=== PATIENT | male | born 1980 | race Caucasian/White ===

== ENCOUNTER 2021-03-21 08:37 | Emergency (ER) | payer MEDICAID, OTHER ==
[~2021-03-21] VITALS: Ht 175.3 cm; Wt 61.0 kg
[2021-03-21] MEDS ORDERED: morphine INJ 10 MG/ML 1ML (SYR OR VIAL) IM STA (09:07)
--- NOTE | 2021-03-21 09:14 | ED Upper Extremity ---
General Chief Complaint: Upper Extremity Stated Complaint: RT ARM NUMBNESS/SWELLING; RT SHOULDER PAIN Nursing Triage Note: PT AMBULATE TO ROOM [facility] WITH C/O RIGHT SHOULDER PAIN AND SWELLING. PT REPORTS WAKING UP TODAY AT 0230 WITH PAIN. PT REPORTS HEAVY LIFTING ON SATURDAY. Source: patient History of Present Illness Date Seen by Provider: Mar 21, 2021 Time Seen by Provider: 08:41 Initial Comments 41-year-old male presenting with complaints of acute pain onset at 230 this morning. He states that he has pain into the right shoulder that is worse with movement as well as numbness and tingling down his arm. He has had some similar symptoms in the past but has never been this severe. Usually after drinking too much and then sleeping on it wrong he would have the symptoms for a day but then they would go away. However they have never been this severe. He denies any direct trauma or fall to his shoulder or arm but did do a lot of lifting on Saturday. However Saturday and Saturday during the day were fine. He denies any fever or chills. He denies any other past medical problems that are chronic. He denies any allergies to medications or any chronic medications he takes every day. He does take vitamins and an acid transportation inspector that is over the counter. he reports moving to the area about 2 months ago and has not established with a provider Onset: this morning (about 230 am) Severity: severe Pain/Injury Location: right shoulder Method of Injury: unknown Modifying Factors: Improves With Immobilization; Worse With Movement Allergies and Home Medications Allergies Coded Allergies: No Known Allergies (Verified Allergy, Unknown, 03/21/21) Patient Home Medication List Home Medication List Reviewed: Yes Baclofen (Baclofen) 10 Mg Tablet, 10 MG PO TID PRN for MUSCLE SPASMS Prescribed by: KYLEE RONQUILLO on 03/21/21 1036 Hydrocodone/Acetaminophen (Hydrocodone-Acetamin 5-325 mg) 1 Each Tablet, 1 TAB PO Q6H PRN for PAIN-SEVERE (8-10) Prescribed by: KYLEE RONQUILLO on 03/21/21 1038 Prednisone (Prednisone) 20 Mg Tab, 40 MG PO DAILY Prescribed by: KYLEE RONQUILLO on 03/21/21 1036 Review of Systems Constitutional: No chills, No fever EENTM: no symptoms reported Respiratory: no symptoms reported Cardiovascular: no symptoms reported Gastrointestinal: no symptoms reported Genitourinary: no symptoms reported Musculoskeletal: see HPI Skin: No change in color Psychiatric/Neurological: Anxiety, Tingling (right arm since 230 am) Past Xwlmnqz-Iwwfjg-Fssblw Hx Patient Social History Tobacco Use?: Yes Tobacco type used: Cigarettes Smoking Status: Current Everyday Smoker Use of E-Cig and/or Vaping dev: No Use of E-Cig and/or Vaping Shant: Never a User Substance use?: Yes Substance type: Marijuana Substance frequency: Daily Alcohol Use?: Yes Alcohol Frequency: Daily Past Medical History Surgeries: Yes (Thoracostomy tube for spontaneous pneumothorax) Orthopedic (bilateral knee arthroscopy) Respiratory: Yes (spontaneous pneumothorax) Cardiac: No Neurological: No Genitourinary: No Gastrointestinal: No Musculoskeletal: Yes Arthritis (bilateral knees with arthroscopy of both knees) Psychosocial: No Physical Exam Vital Signs Vital Signs - First Documented 03/21/21 03/21/21 08:42 10:43 Temp 37.0 Pulse 101 Resp 18 B/P (MAP) 141/79 (99) Pulse Ox 98 O2 Delivery Room Air Capillary Refill : Less Than 3 Seconds Height, Weight, BMI Height: '" Weight: lbs. oz. kg; 19.00 BMI Method: General Appearance: mild distress (anxious) Neck: non-tender, full range of motion, supple, normal inspection Cardiovascular: normal peripheral pulses, regular rate, rhythm Shoulder: no evidence of injury; No deformity, No ecchymosis; limited ROM (due to pain), pain (right shoulder joint with movement) Neurologic/Tendon: sensory deficit (reports decreased sensation to right arm from shoulder to fingers. 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 Will obtain CT cervical spine to check for disc injury or signs of pinched nerve. Xrays of the right shoulder to check for bony abnormality. However he may need MRI to check for rotator cuff or nerve injury. Progress Note #2: Time: 10:17 Progress Note Xray of shoulder does not show any acute bony abnormality. CT scan of Cervical spine shows degenerative changes and at C6-7 he has right sided moderate neuroforaminal narrowing with some central spinal stenosis. Will treat with steroids, muscle relaxer, and a few opiods for severe pain. Sling for a few days to rest the shoulder. Will need to establish care with provider and/or see Orthopedics for follow up and may need MRI to check for rotator cuff injury or better evaluate nerves from cervical spine. Diagnostic Imaging Diagonstic Imaging: CT Plain Films/CT/US/NM/MRI: c-spine Comments NAME: PATY DEAN MED REC#: [id number] PT STATUS: REG ER : 1980 PHYSICIAN: KYLEE RONQUILLO MD ADMIT DATE: 03/21/21/ER FS Draft Date of Exam:03/21/21 CT CERVICAL SPINE WO Clinical indications: Patient with no history of injury. Patient has pain and numbness to right arm. EXAM: Axial CT scan the cervical spine performed without IV contrast. Sagittal and coronal reformatted images are created. Auto Exposure Controls were utilized during the CT exam to meet ALARA standards for radiation dose reduction. COMPARISON: None. FINDINGS: There is no acute cervical spine fracture or dislocation. There is straightening of the cervical spine posture which is nonspecific. There is no significant paraspinal soft tissue abnormality. There is bilateral apical pleural parenchymal thickening and emphysematous lung changes. C1-C2: Unremarkable. C2-C3: There is a minimal sized central posterior disk spur. There is no significant central spinal canal or neural foramen narrowing. C3-C4:There is no significant central spinal canal or neural foramen narrowing. C4-C5: There appears to be a subtle posterior disk bulge. There is no significant central spinal canal or neural foramen narrowing. C5-C6: There is mild left C5-C6 facet arthropathy. There is no significant central spinal canal or neural foramen narrowing. C6-C7 level: There is moderate to severe loss of disk space height at the C6-C7 level with circumferential spurs. There are hypertrophic uncinate spurs and posterior spurs. There is moderate right neural foramen narrowing and mild left neural foramen narrowing. There is mild central canal narrowing. C7-T1: Unremarkable. IMPRESSION: 1: There is no acute cervical spine fracture or dislocation. There is straightening of the cervical spine posture which is nonspecific but may be seen with muscle spasms or patient positioning. 2: There is multilevel cervical spine degenerative disease which is most pronounced at the C6-C7 level. 3: There is a C6-C7 diffuse disk bulge with hypertrophic disk spurs. There is moderate right neural foramen narrowing, mild left neural foramen narrowing and at least mild central canal narrowing. Nonemergent MRI of the cervical spine would better evaluate. Dictated on workstation # [id number] Dict: 03/21/21931 Trans: 03/21/21957 [facility] [id number] Interpreted by: DARRYL BRAMBILA MD Electronically signed by: Reviewed: Reviewed by Me Diagonstic Imaging: Xray Plain Films/CT/US/NM/MRI: other (shoulder) Comments [facility] [place] NAME: PATY DEAN [facility] REC#: [id number] PT STATUS: REG ER : 1980 PHYSICIAN: KYLEE RONQUILLO MD ADMIT DATE: 03/21/21/ER FS Draft Date of Exam:03/21/21 SHOULDER 3 VIEW RIGHT INDICATION: Right shoulder pain. TECHNIQUE: AP, oblique, and transscapular views of the right shoulder were obtained. FINDINGS: No fracture or acute bony abnormality is seen. The glenohumeral and AC joints appear unremarkable. IMPRESSION: Negative right shoulder. Dictated on workstation # [id number] Dict: 03/21/21933 Trans: 03/21/2136 [id number] Interpreted by: YUNIEL LARIOS MD Electronically signed by: Reviewed: Reviewed by Me Departure Impression Primary Impression: Right shoulder pain Qualified Codes: M25.511 - Pain in right shoulder Additional Impression: Right cervical radiculopathy Disposition: 01 HOME, SELF-CARE Condition: Stable Departure-Patient Inst. Decision time for Depature: 10:34 Referrals: NO,LOCAL PHYSICIAN (PCP) Primary Care Physician MOISÉS PA MD [facility] Patient Instructions: How to Use a Shoulder Sling ED, Radiculopathy, Shoulder Pain ED, Opioids for Short-Term Treatment of Pain Add. Discharge Instructions: Use shoulder sling to rest your right arm and shoulder for next 3-4 days. After that make sure to remove your arm from the sling and be moving the shoulder and arm so that your shoulder does not stiffen up and freeze up. May alternate ice and heat to your shoulder to help with pain. The steroid will help with pain and inflammation. Muscle relaxer for spasms of muscles in neck and shoulder. Hydrocodone for severe pain. Establish care with primary care or Orthopedics so you could get further follow up and evaluation. You may need an MRI to check your rotator cuff and nerves in neck and shoulder in finer detail than with the CT scan from today. [facility] can be reached at [phone] to establish care and set up an appointment. Dr. Pa with Orthopedics from [place] is shipping lead person today and his number is [phone]. You could also check with his Nurse practitioner, Bijan Posada, at [phone] here in [place]. All discharge instructions reviewed with patient and/or family. Voiced understanding. Scripts Hydrocodone/Acetaminophen (Hydrocodone-Acetamin 5-325 mg) 1 Each Tablet 1 TAB PO Q6H PRN for PAIN-SEVERE (8-10) for 5 Days, #20 TAB 0 Refills Prov: KYLEE RONQUILLO MD 03/21/21 Baclofen (Baclofen) 10 Mg Tablet 10 MG PO TID PRN for MUSCLE SPASMS for 10 Days, #30 TAB 0 Refills Prov: KYLEE RONQUILLO MD 03/21/21 Prednisone (Prednisone) 20 Mg Tab 40 MG PO DAILY for pain/inflammation for 5 Days, #10 TAB 0 Refills Prov: KYLEE RONQUILLO MD 11/2/21 Work/School Note: Work Release Form Date Seen in the Emergency Department: Mar 21, 2021 Return to Work: Mar 27, 2021 Restrictions: No Restrictions Other Restrictions Listed Below: Wear sling and R arm use limit by pain x 1 week. KYLEE RONQUILLO MD Mar 21, 2021 09:14
--- NOTE | 2021-03-21 09:36 | Diagnostic Imaging Report ---
INDICATION: Right shoulder pain. TECHNIQUE: AP, oblique, and transscapular views of the right shoulder were obtained. FINDINGS: No fracture or acute bony abnormality is seen. The glenohumeral and AC joints appear unremarkable. IMPRESSION: Negative right shoulder. Dictated by: Dictated on workstation # [id number]
--- NOTE | 2021-03-21 09:59 | Diagnostic Imaging Report ---
Clinical indications: Patient with no history of injury. Patient has pain and numbness to right arm. EXAM: Axial CT scan the cervical spine performed without IV contrast. Sagittal and coronal reformatted images are created. Auto Exposure Controls were utilized during the CT exam to meet ALARA standards for radiation dose reduction. COMPARISON: None. FINDINGS: There is no acute cervical spine fracture or dislocation. There is straightening of the cervical spine posture which is nonspecific. There is no significant paraspinal soft tissue abnormality. There is bilateral apical pleural parenchymal thickening and emphysematous lung changes. C1-C2: Unremarkable. C2-C3: There is a minimal sized central posterior disk spur. There is no significant central spinal canal or neural foramen narrowing. C3-C4:There is no significant central spinal canal or neural foramen narrowing. C4-C5: There appears to be a subtle posterior disk bulge. There is no significant central spinal canal or neural foramen narrowing. C5-C6: There is mild left C5-C6 facet arthropathy. There is no significant central spinal canal or neural foramen narrowing. C6-C7 level: There is moderate to severe loss of disk space height at the C6-C7 level with circumferential spurs. There are hypertrophic uncinate spurs and posterior spurs. There is moderate right neural foramen narrowing and mild left neural foramen narrowing. There is mild central canal narrowing. C7-T1: Unremarkable. IMPRESSION: 1: There is no acute cervical spine fracture or dislocation. There is straightening of the cervical spine posture which is nonspecific but may be seen with muscle spasms or patient positioning. 2: There is multilevel cervical spine degenerative disease which is most pronounced at the C6-C7 level. 3: There is a C6-C7 diffuse disk bulge with hypertrophic disk spurs. There is moderate right neural foramen narrowing, mild left neural foramen narrowing and at least mild central canal narrowing. Nonemergent MRI of the cervical spine would better evaluate. Dictated by: Dictated on workstation # [id number]
[2021-03-21] MEDS ORDERED: BACL10TA PO (10:36)
[2021-03-21] MEDS ORDERED: PRD20T PO (10:36)
[2021-03-21] MEDS ORDERED: ACHD5005 PO (10:36)
[2021-03-21 10:43] VITALS: BP 131/83
== END 2021-03-21 10:43 | disposition home or self-care (01) ==
LOC: ER FS 08:40
DX: M25.511 Pain in right shoulder (principal); M54.12 Radiculopathy, cervical region; F17.210 Nicotine dependence, cigarettes, uncomplicated
CPT/HCPCS: 72125; 73030; 99283; A4565

== ENCOUNTER 2021-09-04 11:05 | Emergency (ER) | payer MEDICAID, OTHER ==
[~2021-09-04] VITALS: Ht 172 cm; Wt 79.0 kg
[~2021-09-04 11:05] MED LIST: ACHD5005 PO; BACL10TA PO; PRD20T PO
--- NOTE | 2021-09-04 11:21 | ED Upper Extremity ---
General Stated Complaint: ARM PAIN History of Present Illness Date Seen by Provider: Sep 04, 2021 Time Seen by Provider: 11:16 Initial Comments 41-year-old male presents with pain in trapezius area on the right side that has some pain that goes into his right arm, some occasional numbness and tingling. Patient reports he has had this previously was given muscle relaxants and it helped. 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 That about 2 days ago he started getting some pain and tenderness and is worsened over the last couple days. He has been taken a half of a couple old muscle relaxants that he has had that helped but today seems to be a little worse. He has no known new injury. Allergies and Home Medications Allergies Coded Allergies: No Known Allergies (Verified Allergy, Unknown, 03/21/21) Patient Home Medication List Home Medication List Reviewed: Yes Baclofen (Baclofen) 10 Mg Tablet, 10 MG PO TID PRN for MUSCLE SPASMS Prescribed by: KYLEE RONQUILLO on 03/21/21 1036 Hydrocodone/Acetaminophen (Hydrocodone-Acetamin 5-325 mg) 1 Each Tablet, 1 TAB PO Q6H PRN for PAIN-SEVERE (8-10) Prescribed by: KYLEE RONUQILLO on 03/21/21 1038 Prednisone (Prednisone) 20 Mg Tab, 40 MG PO DAILY Prescribed by: KYLEE RONQUILLO on 03/21/21 1036 Review of Systems Constitutional: No chills, No fever EENTM: no symptoms reported Respiratory: no symptoms reported Cardiovascular: no symptoms reported Gastrointestinal: no symptoms reported Genitourinary: no symptoms reported Musculoskeletal: see HPI Skin: no symptoms reported Psychiatric/Neurological: See HPI Past Sfyhbgg-Utobko-Ozhvcf Hx Past Medical History Surgeries: Yes (Thoracostomy tube for spontaneous pneumothorax) Orthopedic Respiratory: Yes (spontaneous pneumothorax) Cardiac: No Neurological: No Genitourinary: No Gastrointestinal: No Musculoskeletal: Yes Arthritis Psychosocial: No Physical Exam Vital Signs Capillary Refill : Height, Weight, BMI Height: '" Weight: lbs. oz. kg; 19.00 BMI Method: General Appearance: no apparent distress Neck: other (Mild torticollis on the right with tenderness along the trapezius distribution) Cardiovascular: normal peripheral pulses Respiratory: lungs clear, normal breath sounds Shoulder: normal inspection, non-tender, normal ROM Elbow/Forearm: normal inspection, non-tender, normal ROM Wrist: Yes normal inspection Hand: normal inspection Neurologic/Tendon: no evidence tendon injury Neurologic/Psychiatric: alert, normal mood/affect, oriented x 3 Skin: normal color, warm/dry Progress/Results/Core Measures Progress Progress Note : Progress Note Patient with torticollis/trapezius muscle strain. We will give him a Toradol, Norflex shot in the ER. Patient will be prescribed meloxicam and Flexeril. I recommend he follow-up with a primary care provider for physical therapy and outpatient management. Can also use topical lidocaine, capsaicin cream or Voltaren cream. Patient stable discharged home Departure Impression Primary Impression: Torticollis, spasmodic Additional Impression: Cervical radiculopathy Disposition: HOME, SELF-CARE Condition: Stable Departure-Patient Inst. Referrals: NO,LOCAL PHYSICIAN (PCP/Family) Primary Care Physician Patient Instructions: Torticollis, Adult, Neck Stretches, Muscle Spasm ED, Radiculopathy Add. Discharge Instructions: Warm moist heat to affected area for 30 minutes at a time for times daily 4% topical lidocaine with menthol to affected area, use as directed on package Voltaren/diclofenac cream use as directed on package Capsaicin cream, use as directed on pack Follow-up with your primary care provider if symptoms or not improving for research quality assurance specialist consultation and physical therapy consult. IRENA DESOUZA DO Sep 04, 2021 11:21
[2021-09-04] MEDS ORDERED: ORPHENADRINE 60 MG/2 ML (NORFLEX) AMP (ED ONLY) IM STA (11:28)
[2021-09-04] MEDS ORDERED: KETOROLAC 30 MG/ML VIAL IM STA (11:28)
== END 2021-09-04 11:50 | disposition home or self-care (01) ==
LOC: EDUNIT# 11:05 → ER FS 11:07
DX: G24.3 Spasmodic torticollis (principal); M54.12 Radiculopathy, cervical region
CPT/HCPCS: 99284

== ENCOUNTER 2021-11-01 11:51 | Emergency (ER) | payer OTHER ==
[~2021-11-01] VITALS: Ht 175 cm; Wt 77.0 kg
[2021-11-01 12:01] VITALS: BP 135/73
[2021-11-01] MEDS ORDERED: NS IV 1000 ML 1,000 ML IV SCH (12:15)
[2021-11-01] MEDS ORDERED: ONDANSETRON 4 MG/2 ML (SDV) Z0FRAN IVP ONE (12:15)
[2021-11-01] MEDS ORDERED: KETOROLAC 30 MG/ML VIAL IVP ONE (12:15)
[2021-11-01 12:19] LABS: BASOPHILS # (AUTO) 0.1 10^3/uL (0.0-0.1); BASOPHILS % (AUTO) 1 % (0-10); EOSINOPHILS # (AUTO) 0.1 10^3/uL (0.0-0.3); EOSINOPHILS % (AUTO) 1 % (0-10); HEMATOCRIT 40 % (40-54); HEMOGLOBIN 13.9 g/dL (13.3-17.7); LYMPHOCYTES # (AUTO) 1.8 10^3/uL (1.0-4.0); LYMPHOCYTES % (AUTO) 28 % (12-44); MEAN CORPUSCULAR HEMOGLOBIN 31 pg (25-34); MEAN CORPUSCULAR HGB CONC 35 g/dL (32-36); MEAN CORPUSCULAR VOLUME 88 fL (80-99); MEAN PLATELET VOLUME 9.9 fL (9.0-12.2); MONOCYTES # (AUTO) 0.7 10^3/uL (0.0-1.0); MONOCYTES % (AUTO) 11 % (0-12); NEUTROPHILS # (AUTO) 3.9 10^3/uL (1.8-7.8); NEUTROPHILS % (AUTO) 59 % (42-75); PLATELET COUNT 225 10^3/uL (130-400); WHITE BLOOD COUNT 6.6 10^3/uL (4.3-11.0)
[2021-11-01] MEDS ORDERED: ONDANSETRON 4 MG/2 ML (SDV) Z0FRAN ONE (12:21)
--- NOTE | 2021-11-01 12:27 | ED Abdominal Pain ---
General Chief Complaint: Abdominal/GI Problems Stated Complaint: VOMITING; RT FLANK PAIN; HEADACHE Nursing Triage Note: Pt reports nausea, vomiting, diarrhea, cough, back pain and flank pain that began Saturday. Source of Information: Patient Exam Limitations: No Limitations History of Present Illness Date Seen by Provider: Nov 01, 2021 Time Seen by Provider: 12:00 Initial Comments Patient is a 41-year-old male body aches, back pain, intermittent nausea vomiting for the past 3 days with generalized malaise. Patient was nasal congestion headache. Reports blood-tinged vomit earlier this morning. No fever chills or sweats. No chest pain or shortness of breath. No other acute symptoms or complaints. Timing/Duration: 1-3 Hours, 3-4 Days Severity/Quality: Moderate Location: Other Radiation: Other Activities at Onset: Other Modifying Factors: Improves With Other Associated Symptoms: Other Allergies and Home Medications Allergies Coded Allergies: No Known Allergies (Verified Allergy, Unknown, 03/21/21) Patient Home Medication List Home Medication List Reviewed: Yes Baclofen (Baclofen) 10 Mg Tablet, 10 MG PO TID PRN for MUSCLE SPASMS Prescribed by: KYLEE RONQUILLO on 03/21/21 1036 Hydrocodone/Acetaminophen (Hydrocodone-Acetamin 5-325 mg) 1 Each Tablet, 1 TAB PO Q6H PRN for PAIN-SEVERE (8-10) Prescribed by: KYLEE RONQUILLO on 03/21/21 1038 Prednisone (Prednisone) 20 Mg Tab, 40 MG PO DAILY Prescribed by: KYLEE RONQUILLO on 03/21/21 1036 Review of Systems Review of Systems Constitutional: see HPI EENTM: See HPI Respiratory: See HPI Cardiovascular: See HPI Gastrointestinal: See HPI Genitourinary: See HPI Musculoskeletal: see HPI Skin: see HPI Psychiatric/Neurological: See HPI Endocrine: See HPI Hematologic/Lymphatic: See HPI All Other Systems Reviewed Negative Unless Noted: Yes Past Rqmsncx-Twitba-Agwqch Hx Patient Social History Tobacco Use?: Yes Tobacco type used: Cigars Smoking Status: Current Everyday Smoker Use of E-Cig and/or Vaping dev: No Substance use?: Yes Substance type: Marijuana Substance frequency: Once in a while Alcohol Use?: Yes Alcohol type: Beer Alcohol Frequency: Once in a while Pt feels they are or have been: No Past Medical History Surgeries: Yes (Thoracostomy tube for spontaneous pneumothorax) Orthopedic Respiratory: Yes (spontaneous pneumothorax) Cardiac: No Neurological: No Genitourinary: No Gastrointestinal: No Musculoskeletal: Yes Arthritis Psychosocial: No Physical Exam Vital Signs Vital Signs - First Documented 11/01/21 12:01 Temp 36.7 Pulse 104 Resp 18 B/P (MAP) 135/73 (93) Capillary Refill : Less Than 3 Seconds Height/Weight/BMI Height: '" Weight: lbs. oz. kg; 25.00 BMI Method: General Appearance: WD/WN, no apparent distress HEENT: PERRL/EOMI, normal ENT inspection Neck: non-tender, full range of motion, supple Respiratory: lungs clear Cardiovascular: normal peripheral pulses, regular rate, rhythm Gastrointestinal: non tender, soft Extremities: normal range of motion, non-tender Back: normal inspection, no CVA tenderness, no vertebral tenderness Neurologic/Psychiatric: weight clerk II-XII nml as tested, no motor/sensory deficits, alert, oriented x 3 Focused Exam Sepsis Stage: Ruled Out Progress/Results/Core Measures Results/Orders Lab Results Laboratory Tests Test 11/01/21 12:05 11/01/21 12:45 Range/Units White Blood Count 6.6 4.3-11.0 10^3/uL Red Blood Count 4.53 4.30-5.52 10^6/uL Hemoglobin 13.9 13.3-17.7 g/dL Hematocrit 40 40-54 % Mean Corpuscular Volume 88 80-99 fL Mean Corpuscular Hemoglobin 31 25-34 pg Mean Corpuscular Hemoglobin Concent 35 32-36 g/dL Red Cell Distribution Width 12.2 10.0-14.5 % Platelet Count 225 130-400 10^3/uL Mean Platelet Volume 9.9 9.0-12.2 fL Immature Granulocyte % (Auto) 0 % Neutrophils (%) (Auto) 59 42-75 % Lymphocytes (%) (Auto) 28 12-44 % Monocytes (%) (Auto) 11 0-12 % Eosinophils (%) (Auto) 1 0-10 % Basophils (%) (Auto) 1 0-10 % Neutrophils # (Auto) 3.9 1.8-7.8 10^3/uL Lymphocytes # (Auto) 1.8 1.0-4.0 10^3/uL Monocytes # (Auto) 0.7 0.0-1.0 10^3/uL Eosinophils # (Auto) 0.1 0.0-0.3 10^3/uL Basophils # (Auto) 0.1 0.0-0.1 10^3/uL Immature Granulocyte # (Auto) 0.0 0.0-0.1 10^3/uL Sodium Level 143 135-145 MMOL/L Potassium Level 4.0 3.6-5.0 MMOL/L Chloride Level 111 H 98-107 MMOL/L Carbon Dioxide Level 21 21-32 MMOL/L Anion Gap 11 5-14 MMOL/L Blood Urea Nitrogen 13 7-18 MG/DL Creatinine 0.66 0.60-1.30 MG/DL Estimat Glomerular Filtration Rate 122 BUN/Creatinine Ratio 20 Glucose Level 95 70-105 MG/DL Calcium Level 9.1 8.5-10.1 MG/DL Corrected Calcium 8.9 8.5-10.1 MG/DL Total Bilirubin 0.3 0.1-1.0 MG/DL Aspartate Amino Transf (AST/SGOT) 31 5-34 U/L Alanine Aminotransferase (ALT/SGPT) 78 H 0-55 U/L Alkaline Phosphatase 97 40-136 U/L Total Protein 6.6 6.4-8.2 GM/DL Albumin 4.2 3.2-4.5 GM/DL Lipase 26 8-78 U/L Urine Color YELLOW Urine Clarity SL CLOUDY Urine pH 7.0 5-9 Urine Specific [place] 1.015 L 1.016-1.022 Urine Protein NEGATIVE NEGATIVE Urine Glucose (UA) NEGATIVE NEGATIVE Urine Ketones NEGATIVE NEGATIVE Urine Nitrite NEGATIVE NEGATIVE Urine Bilirubin NEGATIVE NEGATIVE Urine Urobilinogen 0.2 < = 1.0 MG/DL Urine Leukocyte Esterase NEGATIVE NEGATIVE Urine RBC (Auto) NEGATIVE NEGATIVE Urine RBC NONE /HPF Urine WBC 0-2 /HPF Urine Squamous Epithelial Cells NONE /HPF Urine Crystals NONE /LPF Urine Bacteria NEGATIVE /HPF Urine Casts NONE /LPF Urine Mucus MODERATE H /LPF Urine Culture Indicated NO My Orders Orders - OLIVIA HURLEY DO Urinalysis (11/01/21 12:02) Cbc With Automated Diff (11/01/21 12:02) Comprehensive Metabolic Panel (11/01/21 12:02) Lipase (11/01/21 12:02) Ondansetron Injection (Zofran Injectio (11/01/21 12:15) Ns Iv 1000 Ml (Sodium Chloride 0.9%) (11/01/21 12:15) Ketorolac Injection (Toradol Injection) (11/01/21 12:15) Ondansetron Injection (Zofran Injectio (11/01/21 12:21) Medications Given in ED Current Medications Medications Dose Ordered Sig/Nick Route Start Time Stop Time Status Last Admin Dose Admin Ketorolac Tromethamine 30 mg ONCE ONCE IVP 11/01/21 12:15 11/01/21 12:16 DC 11/01/21 12:18 30 MG Ondansetron HCl 8 mg ONCE ONCE IVP 11/01/21 12:15 11/01/21 12:16 DC 11/01/21 12:18 8 MG Vital Signs/I&O 11/01/21 12:01 Temp 36.7 Pulse 104 Resp 18 B/P (MAP) 135/73 (93) Blood Pressure Mean: 93 Departure Communication (Admissions) Exam consistent with GI illness prevalent in the community. Symptoms improved with treatment vital signs stable. Lab work reassuring. Abdomen soft, nontender reevaluation. Recommendations are for watchful waiting supportive care and PCP follow-up. Return precautions reviewed. Patient verbalizes understanding agreement discharge instructions prior to departure. Impression Primary Impression: Nausea & vomiting Additional Impression: Sinus congestion Disposition: HOME, SELF-CARE Condition: Stable Departure-Patient Inst. Decision time for Depature: 13:14 Referrals: NO,LOCAL PHYSICIAN (PCP/Family) Primary Care Physician Patient Instructions: Diarrhea in Adolescents and Adults, Nausea and Vomiting, Adult (DC) Add. Discharge Instructions: You were evaluated in the emergency department for sinus congestion nausea vomiting abdominal pain and diarrhea. The exact cause of your symptoms has not been determined but is consistent with viral illness prevalent in the community. Please stay home and rest, increase fluids and take newly prescribed medications as directed. Follow-up with your PCP in 2 to 3 days for reevaluation. Return to the ED if new or worsening symptoms. All discharge instructions reviewed with patient and/or family. Voiced understanding. Scripts Tramadol HCl (Tramadol HCl) 50 Mg Tablet 50 MG PO Q6H, #10 TAB Prov: OLIVIA HURLEY 11/01/21 Guaifenesin/Pseudoephedrne HCl (Mucinex D ER 1,200-120 mg Tab) 1,200 Mg-120 Mg Tab.er.12h 1 EACH PO Q12H, #20 TAB Prov: OLIVIA HURLEY DO 11/01/21 Ondansetron (Ondansetron Odt) 4 Mg Tab.rapdis 4 MG PO Q6H, #10 TAB Prov: OLIVIA HURLEY DO 11/01/21 OLIVIA HURLEY DO Nov 01, 2021 12:27
[2021-11-01 12:49] LABS: ALBUMIN 4.2 GM/DL (3.2-4.5); BILIRUBIN,TOTAL 0.3 MG/DL (0.1-1.0); CALCIUM 9.1 MG/DL (8.5-10.1); CREATININE SERUM 0.66 MG/DL (0.60-1.30); TOTAL PROTEIN 6.6 GM/DL (6.4-8.2)
[2021-11-01 12:51] LABS: BILIRUBIN,URINE NEGATIVE (NEGATIVE); CLARITY,URINE SL CLOUDY; COLOR,URINE YELLOW; GLUCOSE, URINE (UA) NEGATIVE (NEGATIVE); KETONES,URINE NEGATIVE (NEGATIVE); LEUKOCYTE ESTERASE ,URINE NEGATIVE (NEGATIVE); NITRITE,URINE NEGATIVE (NEGATIVE); PROTEIN,URINE NEGATIVE (NEGATIVE)
[2021-11-01 13:03] LABS: BACTERIA,URINE NEGATIVE /HPF; WBC,URINE 0-2 /HPF
[2021-11-01] MEDS ORDERED: ONDA4TAB11 PO (13:18)
[2021-11-01] MEDS ORDERED: TRAM50TA3 PO (13:18)
[2021-11-01] MEDS ORDERED: GUAI-365 PO (13:18)
== END 2021-11-01 13:25 | disposition home or self-care (01) ==
LOC: EDUNIT# 11:51 → ER FS 11:53
DX: R11.2 Nausea with vomiting, unspecified (principal); R09.81 Nasal congestion; F17.290 Nicotine dependence, other tobacco product, uncomplicated
CPT/HCPCS: 36415; 80053; 81000; 83690; 85025

== ENCOUNTER 2022-07-30 02:27 | Emergency (ER) | payer OTHER ==
[~2022-07-30] VITALS: Ht 172.7 cm; Wt 72.7 kg
[~2022-07-30 02:27] MED LIST changes: +GUAI-365 PO; +ONDA4TAB11 PO; +TRAM50TA3 PO
[2022-07-30 02:33] VITALS: BP 128/81
--- NOTE | 2022-07-30 02:44 | ED General ---
General Stated Complaint: N/V /BODY ACHES Source of Information: Patient Exam Limitations: No Limitations History of Present Illness Date Seen by Provider: Jul 30, 2022 Time Seen by Provider: 02:30 Initial Comments 42-year-old male with no pertinent past medical history coming in due to 1 week of body aches, nonbloody diarrhea, and sneezing. No one around him has been sick that he knows of. He believes he has had a subjective fever and chills at home. Denies any cough, headache, neck stiffness, vomiting, chest pain, shortness of breath, abdominal pain, rash, or any other concerns. Has not taken any medicines for this including no ibuprofen or Tylenol. Allergies and Home Medications Allergies Coded Allergies: No Known Allergies (Verified Allergy, Unknown, 03/21/21) Patient Home Medication List Home Medication List Reviewed: Yes Baclofen (Baclofen) 10 Mg Tablet, 10 MG PO TID PRN for MUSCLE SPASMS Prescribed by: KYLEE RONQUILLO on 03/21/21 1036 Guaifenesin/Pseudoephedrne HCl (Mucinex D ER 1,200-120 mg Tab) 1,200 Mg-120 Mg Tab.er.12h, 1 EACH PO Q12H Prescribed by: OLIVIA HURLEY on 11/01/21 1319 Hydrocodone/Acetaminophen (Hydrocodone-Acetamin 5-325 mg) 1 Each Tablet, 1 TAB PO Q6H PRN for PAIN-SEVERE (8-10) Prescribed by: KYLEE RONQUILLO on 03/21/21 1038 Ondansetron (Ondansetron Odt) 4 Mg Tab.rapdis, 4 MG PO Q6H Prescribed by: OLIVIA HURLEY on 11/01/21 1318 Prednisone (Prednisone) 20 Mg Tab, 40 MG PO DAILY Prescribed by: KYLEE RONQUILLO on 03/21/21 1036 Tramadol HCl (Tramadol HCl) 50 Mg Tablet, 50 MG PO Q6H Prescribed by: OLIVIA HURLEY on 11/01/21 1319 Review of Systems Review of Systems Constitutional: chills, fever EENTM: No throat pain Respiratory: no symptoms reported Cardiovascular: no symptoms reported Gastrointestinal: see HPI Genitourinary: no symptoms reported Musculoskeletal: no symptoms reported Skin: no symptoms reported Psychiatric/Neurological: No Symptoms Reported Past Hwncdhw-Evrufg-Ncpniq Hx Patient Social History Tobacco Use?: No Past Medical History Surgeries: Yes (Thoracostomy tube for spontaneous pneumothorax) Orthopedic Respiratory: Yes (spontaneous pneumothorax) Cardiac: No Neurological: No Genitourinary: No Gastrointestinal: No Musculoskeletal: Yes Arthritis Psychosocial: No Physical Exam Vital Signs Vital Signs - First Documented 07/30/22 02:33 Temp 37.0 Pulse 98 Resp 16 B/P (MAP) 128/81 (97) Pulse Ox 100 O2 Delivery Room Air Capillary Refill : Height, Weight, BMI Height: '" Weight: lbs. oz. kg; 25.00 BMI Method: General Appearance: No Apparent Distress, WD/WN Eyes: Bilateral Eye Normal Inspection HEENT: PERRL/EOMI, TMs Normal, Normal ENT Inspection, Pharynx Normal Neck: Full Range of Motion, Normal Inspection, Non Tender, Supple Respiratory: Chest Non Tender, Lungs Clear, Normal Breath Sounds, No Accessory Muscle Use, No Respiratory Distress Cardiovascular: Regular Rate, Rhythm, No Edema, Normal Peripheral Pulses Gastrointestinal: Normal Bowel Sounds, Non Tender, Soft Back: Normal Inspection, No CVA Tenderness Extremity: Normal Capillary Refill, Normal Inspection, Normal Range of Motion, Non Tender, No Calf Tenderness, No Pedal Edema Neurologic/Psychiatric: Alert, No Motor/Sensory Deficits, Normal Mood/Affect Skin: Normal Color, Warm/Dry Lymphatic: No Adenopathy Progress/Results/Core Measures Suspected Sepsis SIRS Temperature: Pulse: Respiratory Rate: Blood Pressure / Mean: Results/Orders Lab Results Laboratory Tests Test 07/30/22 02:37 Range/Units My Orders Orders - IRENE GR MD Influenza A And B By Pcr (07/30/22 02:38) Covid 19 Inhouse Test (07/30/22 02:38) Ketorolac Injection (Toradol Injection) (07/30/22 02:45) Acetaminophen Tablet (Tylenol Tablet) (07/30/22 02:45) Medications Given in ED Current Medications Medications Dose Ordered Sig/Nick Route Start Time Stop Time Status Last Admin Dose Admin Acetaminophen 1,000 mg ONCE ONCE PO 07/30/22 02:45 07/30/22 02:46 DC 07/30/22 02:44 1,000 MG Ketorolac Tromethamine 15 mg ONCE ONCE IM 07/30/22 02:45 07/30/22 02:46 DC 07/30/22 02:44 15 MG Vital Signs/I&O 07/30/22 02:33 Temp 37.0 Pulse 98 Resp 16 B/P (MAP) 128/81 (97) Pulse Ox 100 O2 Delivery Room Air Capillary Refill : Progress Note : Progress Note 42-year-old male with above history coming in due to roughly a week of sneezing, body aches, diarrhea. ABCs were intact and vitals were stable on presentation. Physical exam reassuring with no acute abnormalities. Flu and COVID testing sent. Lungs are clear, breathing comfortably, oxygen saturation normal, therefore chest x-ray not ordered. Given IM Toradol as well as Tylenol for symptom management. I believe he is otherwise stable for discharge with outpatient follow-up. He was sent home with strict return precautions Departure Impression Primary Impression: Flu-like symptoms Disposition: HOME, SELF-CARE Condition: Stable Departure-Patient Inst. Decision time for Depature: 03:05 Referrals: [facility],LOCAL PHYSICIAN (PCP) Primary Care Physician Patient Instructions: Viral Syndrome (DC) Add. Discharge Instructions: You do have a flulike illness. Take ibuprofen and/or Tylenol every 6 hours for body aches and subjective fever. Call [facility] to schedule an ap pointment with the PCP. Likely will start feeling better in the next couple of days. Work/School Note: Work Release Form Date Seen in the Emergency Department: Jul 30, 2022 Return to Work: Jul 31, 2022 Restrictions: Return-No Fever (24hrs) IRENE GR MD Jul 30, 2022 02:44
[2022-07-30] MEDS ORDERED: ACETAMINOPHEN 500 MG TAB (TYLENOL) PO ONE (02:45)
[2022-07-30] MEDS ORDERED: KETOROLAC 15 MG/ML VIAL IM ONE (02:45)
== END 2022-07-30 02:57 | disposition home or self-care (01) ==
LOC: EDUNIT# 02:27 → ER FS 02:31
DX: R19.7 Diarrhea, unspecified (principal); R06.7 Sneezing; M79.10 Myalgia, unspecified site; R50.9 Fever, unspecified; Z20.822 Contact with and (suspected) exposure to COVID-19
CPT/HCPCS: 87636; 99284